=== PATIENT | male | born 1945 | race Caucasian/White ===

== ENCOUNTER 2017-01-07 06:53 | Day surgery (SDC) | payer MEDICARE ==
[~2017-01-07] VITALS: Ht 182.9 cm; Wt 82.3 kg
[2017-01-07] VITALS (10 sets, daily range): BP systolic 95–127; BP diastolic 57–82; PULSE 50–68; RESP 10–17; O2SAT 92–97
--- NOTE | 2017-01-07 06:51 | PCM.HPANE ---
Patient Data Surgeon Admitting Provider: Attending Provider:Emily Bose MD Primary Care Physician:Luis Enrique Vela MD Other Provider: Reason for Visit Bladder Cancer Ht/WT & BMI Height (Feet): 6 Height (Inches): 0 Weight (Kilograms): 83.46 Body Mass Index 24.00 Allergies Coded Allergies: No Known Allergies (Verified , 01/02/17) Past Anesthesia History Anesthesia History: Positive for:: Anesthesia Reactions (reaction to a spinal 10+ years ago), Denies:: Malignant Hyperthermia Diabetes History Hx Diabetes?: No MRSA MRSA: No Medications Blood Thinner: Aspirin Hypertension Medication: Yes (LISINOPRIL,NIFEDIPINE) Home Meds Incl Beta Christian: Yes (METOPROLOL) Reported Medications Isosorbide MN ER 30 Mg Tab.er.24h30 Mg PO DAILY 01/07/17 Tamsulosin (Flomax)0.4 Mg Capsule0.4 Mg PO DAILY Ref 0 01/02/17 Omeprazole 20 Mg Tablet.dr20 Mg PO DAILY 01/02/17 Clopidogrel Bisulfate (Plavix)75 Mg Vjggcj34 Mg PO DAILY 30 Days Ref 0 01/02/17 Allopurinol 300 Mg Zhkpvd356 Mg PO DAILY Ref 0 01/02/17 Metoprolol Succinate ER 200 Mg Tab.er.79w318 Mg PO DAILY Ref 0 01/02/17 Lisinopril 10 Mg Ucmzfh74 Mg PO DAILY 30 Days Ref 0 01/02/17 Nitroglycerin SL (Nitrostat)0.4 Mg Tab.subl0.4 Mg SL Q5MIN PRN CHEST PAIN #1 BOTTLE 01/02/17 Aspirin 81 Mg Mgnxed11 Mg PO DAILY Ref 0 01/02/17 Nifedipine ER 30 Mg Tab.er.2430 Mg PO DAILY Ref 0 01/02/17 Rosuvastatin Calcium (Crestor)40 Mg Cijuji40 Mg PO DAILY 30 Days Ref 0 01/02/17 Discontinued Reported Medications [Isosorbide Dinitrate] No Conflict Txowv452 Mg PO DAILY 01/02/17 Acetaminphen-Expunged Drug, Do Not Renew! 325 Mg Tablet 06/08/08 Atorvastatin-Expunged Drug, Do Not Renew! 80 Mg Tablet 06/08/08 Metoprolol Suc-Expunged Drug, Do Not Renew! 200 Mg Tab.sr.24h 06/08/08 Omeprazole-Expunged Drug, Do Not Renew! 20 Mg Capsule. 06/08/08 Allopurinol-Expunged Drug, Do Not Renew! 300 Mg Tablet 06/08/08 Sildenafil Citrate-Expunged Drug, Do Not Ethan (Viagra-Expunged Drug, Do Not Renew!)100 Mg Tablet 06/08/08 Lisinopril-Expunged Drug, Do Not Renew! 20 Mg Tablet 06/08/08 Ezetimibe (Zetia)10 Mg Tablet 06/08/08 Colchicine-Expunged Drug, Do Not Renew! 0.6 Mg Tablet 06/08/08 Aspirin-Expunged Drug, Do Not Renew! 81 Mg Tab.chew 06/08/08 History History of ENT Problems?: Yes HEENT History: Positive for:: Sinus Problem Denies:: Cataracts Dysphagia Hx of Heart Problems?: Yes Cardiovascular History: Positive for:: Cardiac Surgery (S/P CABG 1990, HEART CATH W/ SUZETTE TO LAD 05/2012) Chest Pain Coronary Artery Disease Hypertension (HYPERLIPIDEMIA) Peripheral Vascular (S/P RT FEM-POP BYPASS GRAFT,B/L CAROTID ENDARTERECTOMIES) Valvular Heart Disease Denies:: Congestive Heart Failure Edema Heart Murmur (ECHO 01/2013 EF 60% GR II/ SYST MURMUR) Irregular Heartbeat Pacemaker Thrombophlebitis Other Cardiac History: Hx of Respiratory Problem?: No Respiratory History: Denies:: Use of C-PAP Machine Hx Neurologic Problems?: Yes Neurological History: Positive for:: CVA Hx of GI Problems?: Yes Gastrointestinal History: Positive for:: Gall Bladder Disease (ASX CHOLELITHIASIS) Gastroesphageal Reflux Heartburn Rectal Bleeding (HX OF HEMORRHOIDS & COLON POLYPS) Denies:: Diverticulitis Gastrointestinal Bleeding Hepatitis Hiatal Hernia Other GI Pertinent History: S/P APPY Hx of Problems?: Yes Genitourinary History: Positive for:: Urinary Tract Infection (HX OF) Denies:: HX of Hemodialysis Kidney Stones HX of Peritoneal Dialysis: No Other Pertinent History: HX SEVERE DEHYDRATION/KIDNEY FAILURE 2007 C/OF LUTS,HEMATURIA,BLADDER TUMOR,URETHRAL STRICTURE S/P CYSTO BLADDER CA=CURRENT PROBLEM Male Hx: Positive for:: Prostate Problems (BPH W/ LUTS) Denies:: Scrotal Mass Testicular Surgery Skin History: Denies:: History Skin Disorders? Pressure Ulcers Hx Musculoskeletal Problems?: Yes Musculoskeletal History: Positive for:: Degenerative Joint Joint Replacement (S/P TKA) Osteoarthritis Hx of Psycho/Social Problems?: No Hx Surgeries?: Yes (TKA,CYSTO,CABG 1990, APP,HEART CATH W/ STENT,RT FEM-POP BYPASS GRAFT,B/L C) Hx Any Other Health Problems?: Yes Other History: Positive for:: Cancer (BLADDER) Hospitalization (HEART) Denies:: Endocrine Disease Thyroid Disease History Blood Transfusions: Denies:: Blood Transfusions Hx Diabetes: No Hx Alcohol Use: YesHx Substance Use: NoHave You Smoked inLast 12 mo: Yes ( TRYING TO QUIT/CUTTING DOWN)Approx How Many Cigarettes/day: 3 PPD X 50YRS Stop/Bang S-Snoring: Do You Snore Loudly: No T-Tired: feel tired, fatigued: No O-Obsered: Observed not breath: No P-Blood Pressure: treated: Yes B- Body Mass Index > 35 kg/m2: No A- Age over 50: Yes N- Neck Large Circumference: No G- Gender Male: Yes NINOSKA Total Score: 3 Risk Assessment Category Category 1A: Patient has history of documented sleep apnea, and HAS NOT received any narcotic, sedative or anesthesia administration during this stay. Category 1B: Patient has history of documented sleep apnea, and HAS received any narcotic , sedative or anesthesia administration during this stay Category 2: Patient has SUSPECTED Obstructive Sleep Apnea, and HAS received any narcotic , sedative or anesthesia administration during this stay. Category 3: Patient has SUSPECTED Obstructive Sleep Apnea and HAS NOT received narcotic, sedative or anesthesia administration during this stay. Category 4: Outpatient in Procedural Areas with known sleep apnea or who screen positive for High Risk via the STOP/BANG questionnaire. Exam Exam General Appearance: Alert, Oriented X3, Cooperative HEENT/AIRWAY: MP 2, Neck Movement (from), Mouth Opening (wnl Moustache, Upper Full and lower partial dentures) Lungs: Clear to Auscultation Heart: Exam Unremarkable Plan Impression Patient chart reviewed, patient interviewed and anesthestic plan with risks, benefits, and alternatives discussed, and informed consent obtained. ASA Physical Status: ASA2 Mod Systemic Disease Anesthetic Plan: GA Bene/Risks/Altern/Consents: Yes HP Complete Prior to Induction: Yes Chino Matthews MD Jan 07, 2017 06:51
[~2017-01-07 06:53] MED LIST: ALLO300T2 PO; ASPI-973 PO; Acetaminophen IV 1,000 MG in IV Premix 1 EACH IV ONE; CLOP75TA3 PO; CeFAZolin Inj 2 GM in IV Premix 1 EACH IV ONE; ISOSORBIDE DINITRATE PO; LISI10TA PO; Lactated Ringer's 1,000 ML IV ONE; METO200T32 PO; Mitomycin Inj 20 MG in Syringe 1 EACH IRRIGATION ONE; NIFE30TA79 PO; NITR0.4T SL; OMEP20TA86 PO; ROSU40TA PO; TAMS0.4C98 PO
[2017-01-07] MEDS ORDERED: fentaNYL-PF 50 mCg/mL 2 mL Inj ONE (06:54)
[2017-01-07] MEDS ORDERED: ISOS30TA4 PO (07:48)
[2017-01-07] MEDS ORDERED: Lactated Ringer's 1,000 ML IV ONE (08:19)
[2017-01-07] MEDS ORDERED: Dexamethasone 4 mg/mL Inj IVPUSH PRN (08:50)
[2017-01-07] MEDS ORDERED: Lactated Ringer's 1,000 ML IV SCH (08:50)
[2017-01-07] MEDS ORDERED: Atropine 0.4 mg/mL Inj IVPUSH PRN (08:50)
[2017-01-07] MEDS ORDERED: EPHEDrine Sulfate 50 mg/mL Inj IVPUSH PRN (08:50)
[2017-01-07] MEDS ORDERED: EPHEDrine Sulfate 50 mg/mL Inj IM PRN (08:50)
[2017-01-07] MEDS ORDERED: Ondansetron 2 mg/mL 2 mL Inj IVPUSH PRN (08:50)
[2017-01-07] MEDS ORDERED: Labetalol 5 mg/mL 4 mL Inj IV PRN (08:50)
[2017-01-07] MEDS ORDERED: Phenylephrine 10,000 mCg/mL Inj IVPUSH PRN (08:50)
[2017-01-07] MEDS ORDERED: HYDROmorphone 1 mg/mL Inj IVPUSH PRN (08:50)
[2017-01-07] MEDS ORDERED: hydrALAZINE 20 mg/mL Inj IVPUSH PRN (08:50)
[2017-01-07] MEDS ORDERED: hydrOXYzine Inj 25 MG/1 mL SDV IM PRN (08:50)
[2017-01-07] MEDS ORDERED: fentaNYL-PF 50 mCg/mL 2 mL Inj IVPUSH PRN (08:50)
[2017-01-07] MEDS ORDERED: Lactated Ringer's 500 ML IV PRN (08:50)
[2017-01-07] MEDS ORDERED: Belladonna Alk-Opium 60 mg Rectal Suppository RECTAL ONE (09:20)
--- NOTE | 2017-01-07 10:45 | PCM.ANEP1 ---
Post Anesthesia Phase 1 PACU Phase 1 Assessment Vital Signs Vital Signs Date Time Temp Pulse Resp B/P Pulse Ox O2 Delivery O2 Flow Rate FiO2 01/07/17 10:34 36.4 50 11 117/57 92 Room Air 01/07/17 10:31 52 17 122/61 93 Room Air 01/07/17 10:20 36.5 52 11 110/69 92 Room Air 01/07/17 10:15 54 13 95/74 93 Room Air 01/07/17 10:10 55 14 119/66 92 Room Air 01/07/17 10:05 55 16 110/79 93 Room Air 01/07/17 10:00 63 10 127/82 92 Room Air 01/07/17 09:56 36.6 63 13 115/75 92 Room Air 01/07/17 07:13 36 68 12 104/68 97 Room Air Anesthetic Administered: GA Level of Alertness: Awake, talking MOHAMUD's with Equal Strength: Yes Pain: No Nausea or Vomiting: No Oxygen Delivery: Room Air Lungs: Normal Air Movement Chino Matthews MD Jan 07, 2017 10:45
[2017-01-07 11:31] LABS: APPEARANCE,URINE HAZY (CLEAR,HAZY); COLOR,URINE BLOODY (YELLOW); OCCULT BLOOD,URINE NEGATIVE (NEGATIVE); PH,URINE 5.5 (5.0-8.0); UROBILINOGEN,URINE NORMAL (NORMAL); YEAST,URINE FEW (NONE SEEN)
--- NOTE | 2017-01-07 16:11 | PCM.ANEP2 ---
Post Anesthesia Evaluation ASA/CMS Post Anesthesia VS in Patient's Normal Range?: Yes Resp Stable; Airway Patent?: Yes CV Function & Hydration Stable: Yes Mental Status Recovered?: Yes Pain control Satisfactory?: Yes N/V Control Satisfactory?: Yes Chino Matthews MD Jan 07, 2017 16:11
--- NOTE | 2017-01-08 11:53 | OP ---
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 OPERATION PERFORMED: 1. Transurethral resection of bladder tumor. 2. Instillation of mitomycin-C (20 mg suspended in 20 cc normal saline). SURGEON: Emily Bose MD ANESTHESIOLOGIST: Chino Matthews MD ANESTHESIA: General. PROCEDURE SUMMARY: The patient was positioned in supine, was administered general anesthesia. He was then repositioned in semi-lithotomy, and lower abdomen, genitalia and groin were prepped and draped in sterile fashion. The 25-Cuban resectoscope was then passed in the lower urinary tract, with findings of a normal urethra, intact external sphincter, and a 4 cm length prostate with moderate lateral lobe hyperplasia. Bladder 1+ trabeculation. There was a mixed solid and papillary spreading neoplasm, extending along the posterior left floor and lateral wall. The resectoscope was then fitted with the resecting loop. The margins of resection were then marked using the cautery tattoos at the periphery, and then large scale resection superficially were in many areas was then conducted. Centrally, there was more solid-appearing tumor. This tissue was collected along with the remainder and submitted to pathology for routine gross and microscopic examination. The bladder was then rinsed free of cellular debris x2. Final inspection of the resection bed revealed excellent hemostasis and no visible viable neoplasm remaining. The bladder was then partially filled. The resectoscope was removed. A 20-Cuban Suazo catheter was then inserted. Contents of bladder drained. The balloon was filled with 5 cc, and 20 mg of mitomycin-C suspended in 20 cc normal saline was then instilled in the bladder for anticipated 2-hour postoperative retention.
--- NOTE | 2017-01-09 10:42 | PATH ---
SURGICAL PATHOLOGY Attending Physician:Emily Bose MD CASE STATUS: Signed Out PATIENT NAME: RANJITH BANKS PID: [id number] : 1945 DATE COLLECTED:01/07/2017 00:00 SPECIMEN: Bladder, Biopsy CLINICAL HISTORY: BLADDER CANCER 1). LEFT LOWER WALL AND FLOOR FINAL DIAGNOSIS: 1.URINARY BLADDER TISSUE, LEFT LOWER WALL AND FLOOR (TRANSURETHRAL RESECTION): PAPILLARY UROTHELIAL CARCINOMA, HIGH GRADE. POSITIVE FOR INVASION OF LAMINA PROPRIA. FOCALLY POSITIVE FOR INVASION OF MUSCULARIS PROPRIA. NEGATIVE FOR EVIDENCE OF VASCULAR INVASION. NEGATIVE FOR EVIDENCE OF FLAT UROTHELIAL CARCINOMA IN SITU. ICD10 CODEC67.8 NOTE: As part of a routine software quality manager, Dr. Joni Dangelo has also reviewed this case and agrees with the diagnosis. GROSS DESCRIPTION: The specimen is received in one formalin filled container labeled with the patient's name, sublabeled "left lower wall and floor" and consists of multiple portions of tissue which aggregate to 3.0 x 2.0 x 0.6 CM. The specimen is filtered and entirely submitted in 3 cassettes. 01/08/2017 [facility] MICRO DESCRIPTION: See diagnosis. ICD-9 CODES: CPT CODES: 1: 58112 Electronically Signed Out Stefan Cook MD [facility] [address], [place] [address] Technical component performed at [facility], [facility] [address], [place], [address]
[2017-04-01] MEDS ORDERED: CHOL100045 PO (13:11)
[2017-04-01] MEDS ORDERED: FISH1CAP15 PO (13:11)
[2017-04-22] MEDS ORDERED: ONDA-54 PO (12:36)
[2017-04-24] MEDS ORDERED: PROM12.510 PO (15:37)
[2017-05-13] MEDS ORDERED: METO25TA99 PO (10:18)
== END 2017-01-07 23:59 | disposition home or self-care (01) ==
LOC: SAS 06:53
PROVIDERS: ATTEND Specialist
DX: C67.2 Malignant neoplasm of lateral wall of bladder (principal); I10 Essential (primary) hypertension; I25.10 Atherosclerotic heart disease of native coronary artery without angina pectoris; K21.9 Gastro-esophageal reflux disease without esophagitis; I73.9 Peripheral vascular disease, unspecified; R12 Heartburn; F17.210 Nicotine dependence, cigarettes, uncomplicated; Z79.82 Long term (current) use of aspirin; Z79.899 Other long term (current) drug therapy
CPT/HCPCS: 52240; 81000; J0131; J0690; J2250; J3010; J7120; J9280

== ENCOUNTER 2017-02-25 07:29 | Day surgery (SDC) | payer MEDICARE ==
[2017-02-25] VITALS (9 sets, daily range): BP systolic 94–151; BP diastolic 60–84; PULSE 49–60; RESP 12–18; O2SAT 92–98
[~2017-02-25] VITALS: Ht 182.9 cm; Wt 79.8 kg
[~2017-02-25 07:29] MED LIST changes: -Acetaminophen IV 1,000 MG in IV Premix 1 EACH IV ONE; +Acetaminophen IV 1,000 mg IV ONE; +ISOS30TA4 PO; -ISOSORBIDE DINITRATE PO; -Mitomycin Inj 20 MG in Syringe 1 EACH IRRIGATION ONE
[2017-02-25] MEDS ORDERED: Ondansetron 2 mg/mL 2 mL Inj ONE (07:30)
[2017-02-25] MEDS ORDERED: fentaNYL-PF 50 mCg/mL 2 mL Inj ONE (07:30)
[2017-02-25] MEDS ORDERED: Dexamethasone 4 mg/mL Inj ONE (07:30)
[2017-02-25] MEDS ORDERED: Propofol 10,000 mCg/mL 20 mL Inj ONE (07:30)
[2017-02-25] MEDS ORDERED: Lidocaine PF 1% 30 mL Inj ONE (07:30)
[2017-02-25] MEDS ORDERED: Lactated Ringer's 500 ML IV PRN (07:42)
[2017-02-25] MEDS ORDERED: Lactated Ringer's 1,000 ML IV SCH (07:42)
[2017-02-25] MEDS ORDERED: Dexamethasone 4 mg/mL Inj IVPUSH PRN (07:45)
[2017-02-25] MEDS ORDERED: EPHEDrine Sulfate 50 mg/mL Inj IVPUSH PRN (07:45)
[2017-02-25] MEDS ORDERED: Labetalol 5 mg/mL 4 mL Inj IV PRN (07:45)
[2017-02-25] MEDS ORDERED: fentaNYL-PF 50 mCg/mL 2 mL Inj IVPUSH PRN (07:45)
[2017-02-25] MEDS ORDERED: Ondansetron 2 mg/mL 2 mL Inj IVPUSH PRN (07:45)
[2017-02-25] MEDS ORDERED: MetoCLOpramide 5 mg/mL 2 mL Inj IVPUSH PRN (07:45)
[2017-02-25] MEDS ORDERED: Phenylephrine 10,000 mCg/mL Inj IVPUSH PRN (07:45)
[2017-02-25] MEDS ORDERED: hydrALAZINE 20 mg/mL Inj IVPUSH PRN (07:45)
[2017-02-25] MEDS ORDERED: HYDROmorphone 1 mg/mL Inj IVPUSH PRN (07:45)
--- NOTE | 2017-02-25 10:06 | PCM.HPANE ---
Patient Data Date of Service: Feb 25, 2017 Surgeon Admitting Provider: Attending Provider:Emily Bose MD Primary Care Physician:Luis Enrique Vela MD Other Provider:Symone Amador Anesthesia Reason for Visit Bladder Cancer Ht/WT & BMI Height (Feet): 6 Height (Inches): 0 Weight (Kilograms): 79.8 Body Mass Index 23.00 Allergies Coded Allergies: No Known Allergies (Verified , 01/02/17) Past Anesthesia History Anesthesia History: Positive for:: Anesthesia Reactions (reaction to a spinal 10+ years ago), Denies:: Malignant Hyperthermia Diabetes History Hx Diabetes?: No MRSA MRSA: No Medications Blood Thinner: Plavix Hypertension Medication: Yes Home Meds Incl Beta Christian: Yes (PATIENT UNSURE IF HE TOOK IT 02/24 OR STOPPED 5 DAYS AGO) Reported Medications Isosorbide MN ER 30 Mg Tab.er.24h30 Mg PO DAILY 01/07/17 Omeprazole 20 Mg Tablet.dr20 Mg PO DAILY 01/02/17 Clopidogrel Bisulfate (Plavix)75 Mg Mumtxt47 Mg PO DAILY 30 Days Ref 0 01/02/17 Allopurinol 300 Mg Ihjwfu147 Mg PO DAILY Ref 0 01/02/17 Metoprolol Succinate ER 200 Mg Tab.er.80j830 Mg PO DAILY Ref 0 01/02/17 Lisinopril 10 Mg Zajsrc89 Mg PO DAILY 30 Days Ref 0 01/02/17 Nitroglycerin SL (Nitrostat)0.4 Mg Tab.subl0.4 Mg SL Q5MIN PRN CHEST PAIN #1 BOTTLE 01/02/17 Aspirin 81 Mg Rbwurp32 Mg PO DAILY Ref 0 01/02/17 Nifedipine ER 30 Mg Tab.er.2430 Mg PO DAILY Ref 0 01/02/17 Rosuvastatin Calcium (Crestor)40 Mg Hdrydg92 Mg PO DAILY 30 Days Ref 0 01/02/17 History History of ENT Problems?: Yes HEENT History: Positive for:: Sinus Problem Denies:: Cataracts Dysphagia Denture Type: Full- Upper Full- Lower Hx of Heart Problems?: Yes Cardiovascular History: Positive for:: Cardiac Surgery (single vessel cabg 1990) Chest Pain Hypertension Denies:: Congestive Heart Failure Edema Heart Murmur Irregular Heartbeat Pacemaker Thrombophlebitis Hx of Respiratory Problem?: No Respiratory History: Denies:: Asthma COPD Emphysema Oxygen Administration Pneumonia Tuberculosis Use of C-PAP Machine Hx Neurologic Problems?: Yes Neurological History: Positive for:: CVA Denies:: Multiple Sclerosis Parkinson's Disease Seizures Hx of GI Problems?: Yes Gastrointestinal History: Positive for:: Gastroesphageal Reflux Heartburn Rectal Bleeding (hemorrhoid hx) Denies:: Diverticulitis Gastrointestinal Bleeding Hepatitis Hiatal Hernia Hx of Problems?: Yes Genitourinary History: Denies:: HX of Hemodialysis Kidney Stones Urinary Tract Infection HX of Peritoneal Dialysis: No Other Pertinent History: bladder tumor current admission problem- prior bx/ mitomycin here 01/2017 Male Hx: Positive for:: Prostate Problems (BPH) Denies:: Scrotal Mass Testicular Surgery Skin History: Denies:: History Skin Disorders? Pressure Ulcers Hx Musculoskeletal Problems?: Yes Musculoskeletal History: Positive for:: Degenerative Joint Joint Replacement (total knee) Osteoarthritis Hx of Psycho/Social Problems?: No Hx Surgeries?: Yes (total knee, CABG, right fem pop, appe, cysto) Hx Any Other Health Problems?: Yes Other History: Positive for:: Cancer (bladder) Hospitalization Denies:: Endocrine Disease Thyroid Disease History Blood Transfusions: Denies:: Blood Transfuse Reaction Blood Transfusions Hx Diabetes: No Hx Alcohol Use: YesHx Substance Use: No Smoking Status: Current Every Day Smoker Have You Smoked inLast 12 mo: Yes Stop/Bang S-Snoring: Do You Snore Loudly: No T-Tired: feel tired, fatigued: No O-Obsered: Observed not breath: No P-Blood Pressure: treated: Yes B- Body Mass Index > 35 kg/m2: No A- Age over 50: Yes N- Neck Large Circumference: No G- Gender Male: Yes NINOSKA Total Score: 3 NINOSKA Risk Assessment: Low Risk, <3 Yes Risk Assessment Category Category 1A: Patient has history of documented sleep apnea, and HAS NOT received any narcotic, sedative or anesthesia administration during this stay. Category 1B: Patient has history of documented sleep apnea, and HAS received any narcotic , sedative or anesthesia administration during this stay Category 2: Patient has SUSPECTED Obstructive Sleep Apnea, and HAS received any narcotic , sedative or anesthesia administration during this stay. Category 3: Patient has SUSPECTED Obstructive Sleep Apnea and HAS NOT received narcotic, sedative or anesthesia administration during this stay. Category 4: Outpatient in Procedural Areas with known sleep apnea or who screen positive for High Risk via the STOP/BANG questionnaire. Exam Exam Vital Signs Vital Signs Date Time Temp Pulse Resp B/P Pulse Ox O2 Delivery O2 Flow Rate FiO2 02/25/17 08:06 36.1 52 16 151/84 98 Room Air General Appearance: Alert, Oriented X3, Cooperative, No Acute Distress HEENT/AIRWAY: MP 2 Lungs: Clear to Auscultation, Normal Air Movement Heart: Exam Unremarkable, Regular Rate/Rhythm, No Murmurs/Rubs/Gallops Meds/Labs/Diagnostics Admission Meds Current Medications Lactated Ringer's 1,000 ml @ 120 mls/hr Q8H20M ONCE IV Last administered on 07:45; Start 02/25/17 at 05:00; Stop 02/25/17 at 13:19 Acetaminophen/ Premix (Tylenol IV/IV Premix) 100 ml @ 400 mls/hr PREOP ONCE IV Last administered on 02/25/17 09:07; Start 02/25/17 at 06:00; Stop at 06:14; Status DC Plan Impression Patient chart reviewed, patient interviewed and anesthestic plan with risks, benefits, and alternatives discussed, and informed consent obtained. NPO Status: 1930 02/24/17 ASA Physical Status: ASA3 Severe Disease Anesthetic Plan: GA Bene/Risks/Altern/Consents: Yes HP Complete Prior to Induction: Yes Antonio Atkins MD Feb 25, 2017 10:06
[2017-02-25] MEDS ORDERED: Belladonna Alk-Opium 60 mg Rectal Suppository RECTAL ONE ×2 (10:43→10:44)
--- NOTE | 2017-02-25 11:35 | PCM.ANEP2 ---
Post Anesthesia Evaluation ASA/CMS Post Anesthesia VS in Patient's Normal Range?: Yes Resp Stable; Airway Patent?: Yes CV Function & Hydration Stable: Yes Mental Status Recovered?: Yes Pain control Satisfactory?: Yes N/V Control Satisfactory?: Yes Antonio Atkins MD Feb 25, 2017 11:35
--- NOTE | 2017-02-25 11:35 | PCM.ANEP1 ---
Post Anesthesia Phase 1 PACU Phase 1 Assessment Date of Service: Feb 25, 2017 Vital Signs Vital Signs Date Time Temp Pulse Resp B/P Pulse Ox O2 Delivery O2 Flow Rate FiO2 02/25/17 11:29 36.6 50 12 123/68 93 Room Air 02/25/17 11:20 53 15 111/69 93 Room Air 02/25/17 11:15 55 17 113/68 92 Room Air 02/25/17 11:10 60 14 128/61 92 Room Air 02/25/17 11:05 57 14 94/60 94 Room Air 02/25/17 11:00 36.3 57 13 120/66 92 Room Air 02/25/17 08:06 36.1 52 16 151/84 98 Room Air Anesthetic Administered: GA Level of Alertness: Awake, talking Pain: No Nausea or Vomiting: No Oxygen Delivery: Room Air Lungs: Clear to Auscultation, Normal Air Movement Antonio Atkins MD Feb 25, 2017 11:35
--- NOTE | 2017-02-25 20:02 | OP ---
[address] [address] OPERATIVE REPORT PATIENT: RANJITH BANKS : 1945 MR#: [id number] ADMIT: 02/25/2017 JOB ID: [id number] DATE OF SURGERY: 02/25/2017 SURGEON: Emily Bose MD PREOPERATIVE DIAGNOSIS(ES): History of grade 3/3, stage pT2a, transitional cell carcinoma of the bladder (stage pT2a focal). POSTOPERATIVE DIAGNOSIS(ES): History of grade 3/3, stage pT2a, transitional cell carcinoma of the bladder (stage pT2a focal). OPERATION PERFORMED: 1. Cystoscopy. 2. Deep bladder biopsy, fulguration. ANESTHESIA: Chang Atkins MD ANESTHESIA: General. FINDINGS: Urethra normal. External sphincter intact. Prostate 4+ cm length with moderate lateral lobe hyperplasia. Bladder 1+ trabeculation. Normal orifices bilaterally. Resection bed at the left posterolateral wall is actively healing. There are some suspicious areas noted in the surrounding areas of deeper attached eschar. Palliative Care Physician samples were taken from the deep eschar beds as well as a couple of various other areas that looked suspicious for possible recurrence and then the entire area that appeared abnormal was cautery resected superficially again with the button. PROCEDURE SUMMARY: The patient was positioned in supine and was administered general anesthesia. He was then repositioned in semi-lithotomy, and lower abdomen, genitalia, groin were prepped and draped in sterile fashion. Next, the 24-Dominican panendoscope was passed to the lower urinary tract with the findings as described above. The cold cup was then fitted to the working element and several samples were obtained sales representative cash registers as described above. Next, the cautery button was affixed to the working element and the biopsy beds were cauterized for hemostasis and then the entire region previously resected was cautery destroyed with the cutting element using the button superficially. Hemostasis was excellent. The bladder was left partially filled. All instrumentation was then removed and an 18-Dominican catheter was inserted, the balloon was inflated to 10 cc and was placed to gravity drainage. The patient was then awakened, transferred to [facility], and transferred to recovery in stable condition.
--- NOTE | 2017-02-26 15:55 | PATH ---
SURGICAL PATHOLOGY Attending Physician:Emily Bose MD CASE STATUS: Signed Out PATIENT NAME: RANJITH BANKS PID: [id number] : 1945 DATE COLLECTED:02/25/2017 21:38 SPECIMEN: Bladder, Biopsy CLINICAL HISTORY: BLADDER CANCER 1). LEFT POSTERIOR FLOOR AND WALL FINAL DIAGNOSIS: 1.LEFT POSTERIOR FLOOR AND WALL: FIBROMUSCULAR TISSUE CONSISTENT WITH BLADDER WALL, WITH MARKED CHRONIC ACTIVE INFLAMMATION AND FOREIGN BODY REACTION. NO EVIDENCE OF MALIGNANCY. ICD10 CODE N30.80 Z85.51 GROSS DESCRIPTION: The specimen is received in one formalin filled container labeled with the patient's name, sublabeled "left posterior floor and wall" and consists of multiple portions of tissue which aggregate to 0.5 x 0.5 x 0.4 CM. The specimen is entirely submitted in one cassette. 02/25/2017 [facility] MICRO DESCRIPTION: See diagnosis. ICD-9 CODES: CPT CODES: 1: 66626 Electronically Signed Out Gisela Atkinson MD [facility] [address], [place] [address] Technical component performed at [facility], [place], [facility] [address], [place], [address]
[2017-04-01] MEDS ORDERED: FISH1CAP15 PO (13:11)
[2017-04-01] MEDS ORDERED: CHOL100045 PO (13:11)
[2017-04-22] MEDS ORDERED: ONDA-54 PO (12:36)
[2017-04-24] MEDS ORDERED: PROM12.510 PO (15:37)
[2017-05-13] MEDS ORDERED: METO25TA99 PO (10:18)
== END 2017-02-25 23:59 | disposition home or self-care (01) ==
LOC: SAS 07:29
PROVIDERS: ATTEND Specialist
DX: C67.2 Malignant neoplasm of lateral wall of bladder (principal); N40.1 Benign prostatic hyperplasia with lower urinary tract symptoms; R31.0 Gross hematuria; N35.9 Urethral stricture, unspecified; I10 Essential (primary) hypertension; I25.10 Atherosclerotic heart disease of native coronary artery without angina pectoris; Z87.440 Personal history of urinary (tract) infections; Z79.82 Long term (current) use of aspirin
CPT/HCPCS: 52204; 88305; J0131; J1100; J1885; J2405; J3010; J7120